=== PATIENT | female | born 2005 | race Caucasian/White ===

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

== ENCOUNTER → 2024-06-24 | Outpatient (CLI) | payer OTHER | LOC: M WHC 08:38 | PROVIDERS: ATTEND Physician Assistant | DX: D18.03 Hemangioma of intra-abdominal structures (principal) ==

== ENCOUNTER → 2024-08-01 | Outpatient (REF) | payer OTHER | LOC: M LAB REF 12:45 | PROVIDERS: ATTEND Physician Assistant | DX: J02.9 Acute pharyngitis, unspecified (principal) ==

== ENCOUNTER → 2025-04-21 | Outpatient (CLI) | payer OTHER ==
[2025-04-21 11:32] LABS: FREE T4 1.09 NG/DL (0.89-1.76); PROLACTIN 8.88 NG/ML
[2025-04-21 11:33] LABS: ESTRADIOL 38.6 PG/ML; LUTEINIZING HORMONE 6.4 mIU/ML
[2025-04-21 11:34] LABS: PROGESTERONE 0.69 NG/ML
[2025-04-23 11:09] LABS: INSULIN TOTAL2 13.0 uIU/mL (<=18.4)
== END ==
LOC: M LAB 09:22
PROVIDERS: ATTEND Physician Assistant
DX: N91.2 Amenorrhea, unspecified (principal)